=== PATIENT | female | born 1990 | race Two or more races ===

== ENCOUNTER 2025-03-20 08:16 | Outpatient (CLI) | payer OTHER | END 2025-03-20 08:18 | disposition home or self-care (01) | LOC: PRENATAL 08:16 | PROVIDERS: ATTEND Obstetrics & Gynecology Maternal & Fetal Medicine | DX: O36.80X0 Pregnancy with inconclusive fetal viability, not applicable or unspecified (principal); Z36.82 Encounter for antenatal screening for nuchal translucency; Z14.8 Genetic carrier of other disease; Z3A.12 12 weeks gestation of pregnancy ==

== ENCOUNTER 2025-05-08 12:13 | Outpatient (CLI) | payer OTHER | END 2025-05-08 12:14 | disposition home or self-care (01) | LOC: PRENATAL 12:13 | PROVIDERS: ATTEND Obstetrics & Gynecology Maternal & Fetal Medicine | DX: O44.00 Complete placenta previa NOS or without hemorrhage, unspecified trimester (principal); Z3A.20 20 weeks gestation of pregnancy ==

== ENCOUNTER 2025-08-03 14:35 | Outpatient (CLI) | payer OTHER | END 2025-08-03 14:37 | disposition home or self-care (01) | LOC: PRENATAL 14:35 | PROVIDERS: ATTEND Obstetrics & Gynecology Maternal & Fetal Medicine | DX: O26.849 Uterine size-date discrepancy, unspecified trimester (principal); O36.8130 Decreased fetal movements, third trimester, not applicable or unspecified; Z3A.33 33 weeks gestation of pregnancy ==

== ENCOUNTER 2025-09-18 14:30 | Inpatient (IN) | payer OTHER ==
[~2025-09-18] VITALS: Ht 157.5 cm; Wt 59.0 kg
[2025-09-18 16:06] LABS: URINE APPEARANCE Clear; URINE BILIRRUBIN Negative (NEGATIVE); URINE BLOOD Negative; URINE COLOR Yellow; URINE GLUCOSE Negative (NEGATIVE); URINE KETONE Trace (NEGATIVE); URINE LEUKOCYTE Trace; URINE NITRATE Negative; URINE PROTEIN Negative (NEGATIVE); URINE UROBILINOGEN 1.0 E.U./dl
[2025-09-18 16:06] LABS: BASO % 0.4 % (0.1-1.2); EOS # 0.00 (0.04-0.54); EOS % 0.0 % (0.7-7.0); LYMPH # 1.45 (1.18-3.74); LYMPH % 14.6 % (19.3-53.1); MEAN PLATELET VOLUME 11.20 fl (9.4-12.4); MONO # 0.79 (0.24-0.82); MONO % 7.9 % (4.7-12.5); NEUT # 7.65 (1.56-6.13); NEUT % 76.8 % (34.0-71.1); RED CELL DISTRIBUTION WIDTH 13.1 % (11.6-14.4)
[2025-09-18 16:09] LABS: URINE BACTERIA 1372.7 uL (0.0-1933); URINE EPITHELIAL CELLS 23.3 uL (0.0-38.8); URINE RBC 4.9 uL (0.0-20.8); URINE WBC 37.6 uL (0.0-23.2)
[2025-09-18 16:37] LABS: INR < 0.93
[2025-09-18 16:40] LABS: ALT/SGPT 24.0 U/L (12-78); AST/SGOT 19.0 U/L (15-37); BILIRUBIN TOTAL 0.36 mg/dL (0.3-1.2); BUN CREA RATIO 15.0 (7.0-25.0); CREATININE SERUM 0.55 mg/dL (0.55-1.02); GFR 128.09; GLOBULINA 4.0 G/DL (2.4-3.5); GLUCOSE FASTING 86.0 mg/dL (65-100); OSMOLALITY SERUM 275.0 MOSM/KG (275-295)
[2025-09-18 17:17] LABS: URINE CAST 0.14 uL (0.0-1.40)
[2025-09-25] VITALS (8 sets, daily range): BP systolic 124–138; BP diastolic 55–86
[2025-09-25] MEDS ORDERED: RINGERS SOLUTION,LACTATED 1,000 ML IV SCH (03:45)
[2025-09-25] MEDS ORDERED: MISOPROSTOL 25 MCG/4 ML GEL.W.APPL VAG NR (09:30)
[2025-09-25] MEDS ORDERED: MORPHINE SULFATE 4 MG/ML VIAL IV ONE (12:45)
[2025-09-25] MEDS ORDERED: OXYTOCIN 500 ML IV SCH (13:15)
[2025-09-25] MEDS ORDERED: OXYTOCIN 20 UNITS/1000ML RL PIGGYBAG IV ONE ×2 (16:18→20:10)
[2025-09-25] MEDS ORDERED: ERYTHROMYCIN BASE OPHT 1GM EACH TUBE OP ONE ×2 (16:18→19:15)
[2025-09-25] MEDS ORDERED: CHLORHEXIDINE GLUCONATE 120 ML BOTTLE TOP ONE ×2 (16:18→19:15)
[2025-09-25] MEDS ORDERED: LIDOCAINE HCL 1% 10ML VIAL ONE (16:18)
[2025-09-25] MEDS ORDERED: OXYTOCIN 1,000 ML IV SCH (19:15)
[2025-09-25] MEDS ORDERED: ACETAMINOPHEN 500 MG GEL..CAP PO PRN (19:15)
[2025-09-25] MEDS ORDERED: LIDOCAINE HCL 1% 10ML VIAL IJ ONE (19:15)
[2025-09-26] LABS: BASO % 0.2 % (0.1-1.2); EOS # 0.00 (0.04-0.54); EOS % 0.0 % (0.7-7.0); LYMPH # 1.17 (1.18-3.74); LYMPH % 3.8 % (19.3-53.1); MEAN PLATELET VOLUME 11.90 fl (9.4-12.4); MONO # 2.11 (0.24-0.82); MONO % 6.8 % (4.7-12.5); NEUT # 27.22 (1.56-6.13); NEUT % 88.4 % (34.0-71.1); RED CELL DISTRIBUTION WIDTH 12.9 % (11.6-14.4)
[2025-09-26 00:12] VITALS: BP 113/73
[2025-09-26] MEDS ORDERED: PNV,CALCIUM 72/IRON/FOLIC ACID 1 TAB TABLET PO SCH (09:00)
[2025-09-26 09:16] VITALS: BP 108/68
[2025-09-26 17:00] VITALS: BP 121/79
[2025-09-27] VITALS: BP 126/85
[2025-09-27 09:11] VITALS: BP 133/85
== END 2025-09-27 14:39 | disposition home or self-care (01) | DRG 807 ==
LOC: LDR 09-25 03:24 → OB/GYN 09-25 19:30
PROVIDERS: Student in an Organized Health Care Education/Training Program; ADMIT Obstetrics & Gynecology; ATTEND Obstetrics & Gynecology
PROC: 10E0XZZ Delivery of Products of Conception, External Approach (ICD-10-PCS; principal; 2025-09-25)
PROC: 0UQG7ZZ Repair Vagina, Via Natural or Artificial Opening (ICD-10-PCS; 2025-09-25)
PROC: 0UQMXZZ Repair Vulva, External Approach (ICD-10-PCS; 2025-09-25)
PROC: 4A1HXCZ Monitoring of Products of Conception, Cardiac Rate, External Approach (ICD-10-PCS; 2025-09-25)
DX: O70.0 First degree perineal laceration during delivery (principal); Z37.0 Single live birth; Z3A.39 39 weeks gestation of pregnancy